=== PATIENT | female | born 1960 | race Caucasian/White ===

== ENCOUNTER 2016-06-18 12:26 | Day surgery (SDC) | payer OTHER ==
[~2016-06-18] VITALS: Ht 170.2 cm; Wt 90.7 kg
[~2016-06-18 12:26] MED LIST: ALEN70TA51 PO; DIPH25CA6 PO; MELA5LIQ PO; NAPR250T PO; RIZA10TA28 PO; Sodium Chloride LOK Flush 10 mL Syringe IV PRN; TRAZ-115 PO; fentaNYL-PF 50 mCg/mL 2 mL Inj IVPUSH PRN
[2016-06-18 12:53] VITALS: BP 119/80; PULSE 62; RESP 16; O2SAT 100
[2016-06-18] MEDS: 0.9% Sodium Chloride 1,000 ML IV PRN ×2 (13:03→13:38)
--- NOTE | 2016-06-18 14:42 | PCM.ENDEGD ---
EGD Date of Service: Jun 18, 2016 Physician Wesley Moeller MD Indication for Procedure Dysphagia Post Procedure Dx & Findings: Esophageal and gastric erosions Procedure Esophagogastroduodenoscopy PROCEDURE IN DETAIL: The patient was placed in left lateral decubitus position. Bite block was placed. Scope lubricated, placed in posterior pharynx, passed through the cricopharyngeus and esophagus, slowly advanced the entire length of the gastric pouch, pylorus was identified, scope passed through the pylorus and descending portion of duodenum, withdrawn in the antrum, retroflexed upon itself for view of fundus and cardia. Scope was then withdrawn through the oropharynx. Esophagus appeared normal until we get the Z line which showed a small erosion. This was biopsied using cold forceps. Z line at 40 cm. We entered the stomach which showed antritis as well as gastric body irritation consistent with redness and edema and several erosions. Biopsies obtained in these areas. Retroflexion was done. Stomach was easily inflatable and deflatable using air. We advanced to the distal duodenum. Duodenum showed normal villous structure and folds. Impression Esophageal erosions status post biopsy Gastritis and gastric erosions status post biopsy Recommendation Avoid NSAIDs Prilosec 20 once a day [id number] Presedation Assessment Risks and Benefits Informed consent was obtained from the patient after all risks and benefits including but not limited to drug reaction, infection, pain, bleeding, perforation, as well as alternatives were discussed. Patient monitoring Continuous pulse oximetry, cardiac monitoring, blood pressure monitoring, IV access, and oxygen at 2L per nasal cannula. Periprocedural Fentanyl: Fentanyl 125mcg Incrementally Midazolam: Midazolam 7mg Incrementally Complications There were no periprocedural complications identified. Post Procedure Plan Post Procedure Recommendations 1. Restrict activities today. 2. Resume normal activities in the morning. 3. Resume medications. 4. GERD behavioral modification: - Avoid fatty, acidic, spicy, large meals - Do not lie down after meals - Do not eat or drink anything for at least 2 1/2 hours before going to bed at night - Discontinue tobacco and alcohol - Decrease or avoid caffeine - Avoid chocolate and mints - Decrease weight - Avoid aspirin and non steroidal anti-inflammatory agents (NSAID) such as Aleve, Advil, Mobic, Naproxen, Ibuprofen, etc 5. Add proton pump inhibitor. Take 30 minutes before 1st meal of the day. 6. Patient informed of normal post procedure side effects as bloating, drowsiness, blood streaking in the stool 7. If gastric biopsy reveal H.pylori, continue with appropriate treatment 8. If small bowel biopsy reveals celiac, continue with appropriate treatment 9. Please don't hesitate to call me with any questions Wesley Moeller MD Jun 18, 2016 14:42
[2016-06-18 14:51] VITALS: BP 111/67; PULSE 69; RESP 14; O2SAT 93
[2016-06-18 15:10] VITALS: BP 110/63; PULSE 62; RESP 16; O2SAT 93
[2016-06-18 15:15] VITALS: BP 115/83; PULSE 67; RESP 16; O2SAT 97
--- NOTE | 2016-06-20 16:30 | PATH ---
SURGICAL PATHOLOGY Attending Physician:Wesley Moeller M.D. CASE STATUS: Signed Out PATIENT NAME: THERESA FERNANDEZ PID: [id number] : 1960 DATE COLLECTED:06/18/2016 00:00 SPECIMEN: 1: Gastric, Biopsy 2: Esophagus, Biopsy CLINICAL HISTORY: A: GASTRIC EROSION BIOPSY B: DISTAL ESOPHAGUS BIOPSY FINAL DIAGNOSIS: 1.STOMACH, EROSION, BIOPSY: ANTRAL AND BODY-TYPE MUCOSA WITH NO DIAGNOSTIC ABNORMALITY. Negative for Helicobacter organisms. Negative for intestinal metaplasia. Negative for dysplasia and malignancy. 2.DISTAL ESOPHAGUS, BIOPSY: SQUAMOCOLUMNAR JUNCTIONAL MUCOSA WITH NO DIAGNOSTIC ABNORMALITY. Negative for intestinal metaplasia. Negative for dysplasia and malignancy. ICD10 code R10.9 GROSS DESCRIPTION: The specimen is received in two formalin filled containers labeled with the patient's name. 1). The specimen is sublabeled "gastric erosions" and consists of 3 portions of tissue which aggregate to 0.4 x 0.3 x 0.2 CM. The specimen is entirely submitted in cassette 1A. 2). The specimen is sublabeled "distal esophagus" and consists of a 0.3 x 0.3 x 0.3 CM portion of tissue which is entirely submitted in cassette 2A. 06/19/2016 [facility] MICRO DESCRIPTION: See diagnosis. ICD-9 CODES: CPT CODES: 1: 76343 2: 47082 Electronically Signed Out Ashley Soria MD [facility], [place] [address] Technical component performed at [facility], [address] [place] [address] Ave[address], [place], [address]
== END 2016-06-18 23:59 | disposition home or self-care (01) ==
LOC: END 12:26
PROVIDERS: ATTEND Internal Medicine
DX: K22.10 Ulcer of esophagus without bleeding (principal); K25.9 Gastric ulcer, unspecified as acute or chronic, without hemorrhage or perforation; M54.9 Dorsalgia, unspecified
CPT/HCPCS: 43239; G0500; J2250; J3010; J7030